=== PATIENT | female | born 1995 | race Caucasian/White ===

== ENCOUNTER → 2019-05-09 | Outpatient (REF) | payer OTHER ==
[2019-05-09 22:28] LABS: CHLAMYDIA DNA AMPLIFICATION POSITIVE (NEGATIVE); GC DNA AMPLIFICATION NEGATIVE (NEGATIVE)
== END ==
LOC: M SFHCLERA 19:00
PROVIDERS: ATTEND Physician Assistant
DX: A74.9 Chlamydial infection, unspecified (principal)
CPT/HCPCS: 87661; G0463

== ENCOUNTER 2019-12-12 22:34 | Emergency (ER) | payer OTHER, SELFPAY ==
[~2019-12-12] VITALS: Ht 165.1 cm; Wt 75.0 kg
[2019-12-13 00:56] LABS: BASO % 0.4 % (0.0-1.0); EOS # 0.1 10^3/uL (0.0-0.5); EOS % 1.2 % (0.0-3.0); HEMATOCRIT 36.6 % (36.0-47.0); HEMOGLOBIN 12.4 g/dl (12.0-15.5); LYMPH # 2.7 10^3/uL (1.5-5.0); LYMPH % 29.2 % (24.0-44.0); MEAN CORPUSCULAR HEMOGLOBIN 29.7 pg (27.0-33.0); MEAN CORPUSCULAR HGB CONC 33.9 g/dl (32.0-36.5); MEAN CORPUSCULAR VOLUME 87.8 fl (80.0-96.0); MONO # 0.7 10^3/uL (0.0-0.8); MONO % 7.2 % (0.0-5.0); NEUTROPHILS # 5.8 10^3/uL (1.5-8.5); NEUTROPHILS % 61.7 % (36.0-66.0); PLATELET COUNT, AUTOMATED 291 10^3/uL (150-450); RED BLOOD COUNT 4.17 10^6/uL (4.00-5.40); WHITE BLOOD COUNT 9.4 10^3/uL (4.0-10.0)
[2019-12-13 01:43] LABS: BLOOD UREA NITROGEN 11 MG/DL (7-18); CALCIUM LEVEL 8.8 MG/DL (8.5-10.1); CARBON DIOXIDE LEVEL 27 MEQ/L (21-32); CHLORIDE LEVEL 107 MEQ/L (98-107); CK-MB VALUE MASS 1.2 NG/ML (<3.6); CPK CREATINE PHOSPHOKINASE 87 U/L (26-192); CREATININE FOR GFR 0.62 MG/DL (0.55-1.30); GLOMERULAR FILTRATION RATE > 60.0 (>60); GLUCOSE, FASTING 79 MG/DL (70-100); HCG, SERUM QUANTITATIVE 5934 MIU/ML; MB/CK RELATIVE INDEX 1.38 (< OR =4); POTASSIUM SERUM 3.5 MEQ/L (3.5-5.1); SODIUM LEVEL 139 MEQ/L (136-145); TROPONIN I < 0.02 NG/ML (< 0.10)
[2019-12-13 01:50] VITALS: BP 135/76
--- NOTE | 2019-12-14 20:10 | ECGEPIP ---
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
== END 2019-12-13 01:51 | disposition home or self-care (01) ==
LOC: M ED 22:34
DX: Z32.01 Encounter for pregnancy test, result positive (principal)